=== PATIENT | male | born 1955 | race Caucasian/White ===

== ENCOUNTER 2022-10-28 23:28 | Inpatient (IN) | payer MEDICARE, BC ==
[~2022-10-28] VITALS: Ht 165.1 cm; Wt 71.9 kg
[2022-10-29] VITALS (10 sets, daily range): BP systolic 82–122; BP diastolic 49–71; TEMP 97.7–100.3; O2SAT 94–98
[2022-10-29] MEDS ORDERED: IV NORMAL SALINE 1000 ML BAG IV ONE
[2022-10-29] MEDS ORDERED: PANTOPRAZOLE SODIUM 40 MG VIAL IV ONE
[2022-10-29] MEDS ORDERED: ASPI81TA31 PO (00:12)
[2022-10-29] MEDS ORDERED: ROSU5TAB PO (00:12)
[2022-10-29] MEDS ORDERED: PANTOPRAZOLE SODIUM 40 MG VIAL ONE (00:12)
[2022-10-29] MEDS ORDERED: METF-494 PO (00:12)
[2022-10-29 00:15] LABS: LYMPHOCYTES # (AUTO) 1.7 K/uL (0.8-4.8); MONOCYTES # (AUTO) 1.1 K/uL (0.1-1.30)
[2022-10-29 00:37] LABS: BASOPHILS % (AUTO) 0.2 % (0.0-2.0); DIFFERENTIAL COMMENT 0; EOSINOPHILS % (AUTO) 0.1 % (0.0-7.0); LYMPHOCYTES % (AUTO) 15.9 % (20.5-51.5); MEAN CORPUSCULAR HEMOGLOBIN 32.5 uug (23.8-33.4); MEAN CORPUSCULAR HGB CONC 35 g/dL (32.5-36.3); MEAN CORPUSCULAR VOLUME 92.9 fL (73.0-96.2); MONOCYTES % (AUTO) 10.7 % (0.0-11.0); NEUTROPHILS # (AUTO) 7.8 K/uL (1.8-8.9); NEUTROPHILS % (AUTO) 73.1 % (38.5-71.5); PLATELET COUNT (AUTO) 239 K/uL (152-348); WHITE BLOOD COUNT (AUTO) 10.6 K/uL (3.6-10.2)
[2022-10-29 00:40] LABS: RED BLOOD CELL COUNT(AUTO) 1.89 MIL/uL (4.06-5.63)
[2022-10-29 00:41] LABS: HEMATOCRIT 17.6 % (36.7-47.1); HEMOGLOBIN 6.2 g/dL (12.5-16.3)
[2022-10-29 00:55] LABS: CARBON DIOXIDE 25 mmol/L (21-32); CHLORIDE 103 mmol/L (98-107); CREATININE 1.2 mg/dL (0.6-1.3); GLUCOSE 145 mg/dL (74-106); POTASSIUM 3.3 mmol/L (3.5-5.1); SODIUM SERUM 138 mmol/L (136-145); UREA NITROGEN, BLOOD 30 mg/dL (7-18)
[2022-10-29] MEDS ORDERED: FLAS1EAC2 MC (01:00)
[2022-10-29] MEDS ORDERED: FLAS1KIT2 TP (01:00)
[2022-10-29 01:03] LABS: ALANINE AMINOTRANSFERASE 17 U/L (16-63); ALBUMIN 2.8 g/dL (3.4-5.0); ALKALINE PHOSPHATASE 48 U/L (50-136); ASPARTATE AMINOTRANSFERASE 17 U/L (15-37); BILIRUBIN,DIRECT 0.1 mg/dL (0.0-0.2); BILIRUBIN,TOTAL 0.1 mg/dL (0.2-1.0); TOTAL PROTEIN, SERUM 5.4 g/dL (6.4-8.2)
[2022-10-29 01:12] LABS: LACTIC ACID 3.2 mmol/L (0.4-2.0)
[2022-10-29] MEDS ORDERED: POTASSIUM CHLORIDE 200 ML ONE (01:24)
[2022-10-29] MEDS ORDERED: MAGNESIUM SULFATE/D5W 300 ML ONE (01:24)
[2022-10-29] MEDS ORDERED: DEXTROSE 50% 50 ML DISP.SYRIN IV PRN (01:30)
[2022-10-29] MEDS ORDERED: hydrALAZINE HCL 20 MG/1 ML VIAL IV PRN (01:30)
[2022-10-29] MEDS ORDERED: INSULIN REGULAR, HUMAN 300 UNIT/3 ML VIAL SQ PRN (01:30)
[2022-10-29] MEDS ORDERED: ONDANSETRON 4 MG/2 ML VIAL IV PRN (01:30)
[2022-10-29] MEDS ORDERED: MORPHINE SULFATE 2 MG/1 ML DISP.SYRIN IVP PRN (01:30)
[2022-10-29] MEDS: MAGNESIUM SULFATE/D5W 100 ML IV SCH ×3 (01:40→07:23)
[2022-10-29] MEDS: POTASSIUM CHLORIDE 50 ML IV SCH ×4 (01:40→05:35)
[2022-10-29] MEDS ORDERED: IV NS 1000 ML 1,000 ML IV ONE (02:00)
[2022-10-29 02:39] LABS: LACTIC ACID 2.2 mmol/L (0.4-2.0)
[2022-10-29] MEDS: IV NS 1000 ML 1,000 ML IV SCH ×2 (03:05→11:56)
[2022-10-29] MEDS: BLOOD SUGAR DIAGNOSTIC 1 EACH STRIP VI SCH ×4 (06:34→21:22)
[2022-10-29] MEDS ORDERED: PANTOPRAZOLE SODIUM IV 40 MG in IV DEXTROSE 5% 100 ML IV SCH (09:00)
[2022-10-29] MEDS: PANTOPRAZOLE SODIUM 40 MG VIAL IV SCH ×2 (09:15→21:22)
[2022-10-29] MEDS ORDERED: EPOETIN ALFA-EPBX 10,000 UNIT/ML VIAL SQ ONE (10:00)
[2022-10-29] MEDS ORDERED: IV NS 1000 ML 1,000 ML IV PRN (11:15)
[2022-10-29] MEDS: ACETAMINOPHEN 325 MG TABLET PO PRN ×2 (12:17→18:15)
[2022-10-29 19:18] LABS: HEMATOCRIT 17.1 % (36.7-47.1)
[2022-10-29] MEDS ORDERED: ATORVASTATIN 10 MG TABLET PO SCH (21:00)
[2022-10-30] VITALS (13 sets, daily range): BP systolic 90–113; BP diastolic 53–72; TEMP 97.7–99.3; O2SAT 94–96
[2022-10-30 00:40] LABS: HEMATOCRIT 20.2 % (36.7-47.1)
[2022-10-30 02:35] LABS: *BILIRUBIN,URIN NEGATIVE (NEGATIVE); *BLOOD, URINE NEGATIVE (NEGATIVE); *CLARITY,URINE CLEAR (CLEAR); *COLOR,URINE YELLOW (YELLOW); *KETONES,URINE NEGATIVE (NEGATIVE); *PROTEIN,URINE NEGATIVE (NEGATIVE); *UROBILINOGEN,URINE 0.2 E.U./dl (NORMAL); LEUKOCYTE ESTERASE ,URINE NEGATIVE (NEGATIVE); NITRITE, URINE NEGATIVE (NEGATIVE); UGLUCOSE NEGATIVE (NEGATIVE)
[2022-10-30] MEDS: IV NS 1000 ML 1,000 ML IV SCH ×2 (04:00→09:56)
[2022-10-30 04:22] LABS: BASOPHILS % (AUTO) 0.3 % (0.0-2.0); EOSINOPHILS # (AUTO) 0.1 K/uL (0.0-0.7); EOSINOPHILS % (AUTO) 0.7 % (0.0-7.0); LYMPHOCYTES % (AUTO) 22.3 % (20.5-51.5); MEAN CORPUSCULAR HEMOGLOBIN 32.6 uug (23.8-33.4); MEAN CORPUSCULAR HGB CONC 35 g/dL (32.5-36.3); MEAN CORPUSCULAR VOLUME 92.8 fL (73.0-96.2); MONOCYTES # (AUTO) 0.8 K/uL (0.1-1.30); MONOCYTES % (AUTO) 8.6 % (0.0-11.0); NEUTROPHILS % (AUTO) 68.1 % (38.5-71.5); PLATELET COUNT (AUTO) 198 K/uL (152-348); RED CELL DISTRIBUTION WIDTH 14.2 % (12.1-16.2); WHITE BLOOD COUNT (AUTO) 8.9 K/uL (3.6-10.2)
[2022-10-30 04:38] LABS: ALBUMIN 2.4 g/dL (3.4-5.0); BILIRUBIN,TOTAL 0.3 mg/dL (0.2-1.0); CALCIUM 7.5 mg/dL (8.5-10.1); CREATININE 1.2 mg/dL (0.6-1.3); PHOSPHOROUS 2.5 mg/dL (2.5-4.9); POTASSIUM 3.9 mmol/L (3.5-5.1); RED BLOOD CELL COUNT(AUTO) 2.22 MIL/uL (4.06-5.63); TOTAL PROTEIN, SERUM 4.7 g/dL (6.4-8.2)
[2022-10-30 04:39] LABS: DIFFERENTIAL COMMENT 1; HEMATOCRIT 20.6 % (36.7-47.1); HEMOGLOBIN 7.2 g/dL (12.5-16.3)
[2022-10-30] MEDS ORDERED: PROPOFOL 200 MG/20 ML BOTTLE ONE (04:50)
[2022-10-30] MEDS ORDERED: LIDOCAINE-MPF 2% 5 ML VIAL ONE (04:50)
[2022-10-30] MEDS: BLOOD SUGAR DIAGNOSTIC 1 EACH STRIP VI SCH ×3 (07:30→16:30)
[2022-10-30 08:35] LABS: HEMOGLOBIN 7.2 g/dL (12.5-16.3)
[2022-10-30 08:36] LABS: HEMATOCRIT 20.6 % (36.7-47.1)
[2022-10-30] MEDS: PANTOPRAZOLE SODIUM 40 MG VIAL IV SCH (08:39)
[2022-10-30] MEDS: ACETAMINOPHEN 325 MG TABLET PO PRN (11:20)
[2022-10-30 16:19] LABS: HEMOGLOBIN 7.9 g/dL (12.5-16.3)
[2022-10-30] MEDS ORDERED: PANT40TA2 PO (18:19)
== END 2022-10-30 19:55 | disposition home or self-care (01) | DRG 378 ==
LOC: ER 23:41 → TELE3 10-29 01:56
PROVIDERS: ADMIT Internal Medicine; ATTEND Nurse Practitioner Acute Care
PROC: 30233N1 Transfusion of Nonautologous Red Blood Cells into Peripheral Vein, Percutaneous Approach (ICD-10-PCS; principal; 2022-10-29)
PROC: 0DB68ZX Excision of Stomach, Via Natural or Artificial Opening Endoscopic, Diagnostic (ICD-10-PCS; 2022-10-30)
DX: K26.4 Chronic or unspecified duodenal ulcer with hemorrhage (principal); D62 Acute posthemorrhagic anemia; E87.21 Acute metabolic acidosis; K29.71 Gastritis, unspecified, with bleeding; K22.89 Other specified disease of esophagus; E78.5 Hyperlipidemia, unspecified; E87.6 Hypokalemia; E11.9 Type 2 diabetes mellitus without complications; Z88.6 Allergy status to analgesic agent; Z79.84 Long term (current) use of oral hypoglycemic drugs; Z79.82 Long term (current) use of aspirin; Z79.899 Other long term (current) drug therapy
CPT/HCPCS: 36415; 70030-TC; 83605; 83735; 84100; 84484; 85018; 85025; 85730; 86850; 86900; 86901; 86920; 88313-TC; 88342; 93005; C9113; G0378; J0885; J1815; J2405; J3475; J3480; J3490; J7040; J7050; P9016